=== PATIENT | male | born 1965 | race Caucasian/White ===

== ENCOUNTER 2019-01-21 21:49 | Outpatient (CLI) | payer OTHER, BC | END 2019-01-21 23:59 | disposition short-term general hospital (02) | LOC: EMS 21:49 | PROVIDERS: ATTEND Surgery | DX: R07.89 Other chest pain (principal); R10.9 Unspecified abdominal pain; M25.552 Pain in left hip; M54.5 Low back pain; S01.91XA Laceration without foreign body of unspecified part of head, initial encounter; V49.49XA Driver injured in collision with other motor vehicles in traffic accident, initial encounter; Y92.413 State road as the place of occurrence of the external cause | CPT/HCPCS: A0425; A0427 ==

== ENCOUNTER 2020-08-28 11:39 | Outpatient (CLI) | payer OTHER | END 2020-08-28 23:59 | disposition home or self-care (01) | LOC: LAB.N 11:39 | PROVIDERS: ATTEND Family Medicine | DX: R05 Cough (principal); Z20.822 Contact with and (suspected) exposure to COVID-19 ==

== ENCOUNTER 2023-05-27 08:05 | Outpatient (CLI) | payer OTHER ==
--- NOTE | 2023-05-27 09:01 | Sleep Patient Instructions ---
Sleep Center Visit Summary - Patient Visit Information Reason for Visit: Initial consultation - Patient Instructions Additional Instructions: You will continue with CPAP therapy with pressure set at 12-18 cmH2O. A supply prescription will be updated with your DME. I have added an order to update your PAP machine. Please call the office to schedule a compliance follow up once you get your new device. I have also given you a prescription for a travel CPAP as requested. We encourage you to continue to try to lose weight. Please follow up with the sleep care office one month after obtaining new device. - Clinic Information Contact: [facility] [address] [place] [address] [email or web address] T: [phone]
--- NOTE | 2023-05-27 09:10 | SLEEP CARE CONSULTATION ---
Information from patient questionnaire entered by Silvino Norris. I have reviewed and concur with the information entered by Silvino Norris. This document represents the service I personally performed and the decisions made by me, Audra Ambrosio ARNP. History of Present Illness Service Date and Time: 05/27/2023 0805 Reason for Visit: New patient, Previously diagnosed sleep apnea, sleep apnea on CPAP therapy, Other (Establish as a patient) Date of Onset: 30 years Usual bedtime: 10-12 PM Time it takes to fall asleep: ? Snores at night: Yes Observed to quit breathing while asleep: Yes Sleeps alone due to snoring: Yes Number of times waking at night: 1-2 Reasons for waking at night: reports: Choking, Snoring, Gasping for air, Pain, Other (Noise) Toss, Turn, or Twitch while sleeping: Yes Recalls having dreams: Yes Usually gets out of bed at: 7-8 Feels refreshed in the morning: Yes Morning headache: Yes (Sometimes) Sleepy or fatigued during the day: Yes Ever fallen asleep while driving: No Takes day naps: Yes Dreams during day naps: No Prior sleep studies: Yes Year and Where: [facility] Type of Sleep Study: Polysomnography Additional HPI information: RENU FITZGERALD was previously diagnosed to have very severe, AHI 68.3, obstructive sleep apnea-hypopnea syndrome as seen in HST dated 03/25/2016 as done through [facility] and comes in today to establish care for CPAP therapy. - Parasomnia Symptoms Ever been unable to move upon waking from sleep: No Walks in sleep: No Talks in sleep: No Ever acted out dreams in sleep: No Ever felt weak in the knees when startled or emotional: No Problems with memory or concentration: Yes CPAP Compliance Data - Data Reviewed with Patient Average duration of nightly device use: 10 hours 25 mins Compliance rate %: 99 (180/180 days used) Current pressure setting (cmH2O): 12-18 Average residual AHI: 4.7 Central apnea: 0.9 Obstructive apnea: 0.4 Hypopnea: 3.1 Average large leak: 16.7 L/min Compliance data discussion: He has a ResMed Airsense 10 that was last updated in 2017. His machine is giving him a message that it has exceeded its motor life. He has used [employer] in past for supplies but needs a prescription update. He uses a nasal cushion that goes over the nose. Subjective Patient concerns: reports: mask discomfort (needs to be changed; needs supplies), mask leak noise. denies: aerophagia, air blowing in eyes, condensation in mask/hose, nasal congestion, dry mouth, nose, throat, epistaxis Observed to snore while using device: No Current pressure setting perceived as: comfortable On therapy, patient: reports: sleeping better, awakening more refreshed, being more awake and alert during the day, more rested overall. denies: drowsiness while driving Initial [place] Sleepiness Scale score: 13 (in 2023) Past Medical History Past Medical History: reports: Hypertension, Claustrophobia, Anxiety, Depression, Mood disorder (PTSD), Other (high cholesterol) Social History The patient is a professor. Patient is and lives in [place]. Have you smoked in the past 12 months: No Alcohol use: No Caffeine use: Yes Caffeine amount and frequency: 1-2 a week Family History Family history of sleep disordered breathing: No (unknown) Allergies and Home Medications Known drug allergies: No Drug allergies reviewed: Yes Home medication list reviewed: Yes (as listed) Allergy and home medication list: Allergies No Known Drug Allergies Allergy (Verified 05/27/23 08:42) Home Medications Simvastatin 10 mg ORAL DAILY 05/27/23 [History] amLODIPine 5 mg ORAL DAILY 05/27/23 [History] Review of Systems Weight gain over past 5 years: 20 Cardiovascular: reports: high blood pressure Respiratory: denies: shortness of breath Gastrointestinal: denies: heartburn Neurological: reports: headaches, head trauma Psychiatric: reports: anxiety, depression, mood disorder, claustrophobia Ear/Nose/Throat: reports: other (adenoidectomy). denies: tonsillectomy, wisdom teeth removed Endocrine: reports: sluggishness (/tired) Musculoskeletal: reports: joint pain (/stiffness), back pain, mobility problems Physical Exam Vital signs obtained and entered by: Audra Morrissey NP Blood Pressure: 142/92 Cuff size: long (right arm) Heart Rate: 60 O2 Saturation: 98 Height: 6 ft 1 in Weight: 306 lb 9.6 oz Body Mass Index: 40.4 BMI Classification: Morbidly Obese Heart: regular rate and rhythm Lungs: clear bilaterally Impression and Plan 1. Obstructive Sleep Apnea-Hypopnea Syndrome, very severe, with good treatment compliance and good apnea control. On CPAP therapy, the patient has better sleep quality and is more rested overall. His ResMed Airsense 10 was last updated in 2017. The patients CPAP is over 5 years old and of reasonable use. In addition, it is giving him an error message about the motor exceeding his life. Thus, the CPAP will be updated. A DWO prescription will be made. Compliance guidelines for new device and follow up discussed. He would also like to obtain a travel CPAP. I explained that insurance does not usually pay for the travel models. He states he is okay with paying for this himself. I will give him a prescription to obtain a travel CPAP. He will call for compliance follow up once he has new CPAP. Patient's apnea severity and rationale for treatment to reduce apnea, improve sleep quality and reduce cardiovascular and cerebrovascular events was reviewed. I also reviewed the benefit of consistent device use of CPAP for hypertension, depression/anxiety, mood disorder (PTSD). 2. Obesity, unspecified. Currently patients BMI is 40.4. Obesity increases the risk of apnea, CPAP pressure requirements and overall health risks especially cardiovascular and diabetes. Thus patient is advised to lose weight. * Continue auto CPAP pressure at 12-18 cmH2O * Update machine * Update supplies * Travel CPAP * Notify me if snoring with mask or feeling that the pressure is too much or too little * Attempt to lose weight * Call this office if any problems using CPAP * Return for follow up one month after obtaining new device, or sooner if concerns arise Counseling Topics: Spare mask, Weight loss health impact Prescriptions: Auto CPAP, Device supplies Visit Type: In Office Time Spent with Patient (minutes): 38 Provider Statement: I spent 100% of the Face to Face Visit with the patient with greater than 50% spent counseling the patient and coordination of care.
[2023-05-27 09:26] VITALS: BP 142/92; O2SAT 98
== END 2023-05-27 08:06 | disposition home or self-care (01) ==
LOC: SC 08:05
PROVIDERS: ATTEND Nurse Practitioner Family
DX: G47.33 Obstructive sleep apnea (adult) (pediatric) (principal); E66.01 Morbid (severe) obesity due to excess calories; Z68.41 Body mass index [BMI] 40.0-44.9, adult
CPT/HCPCS: 99203; 99212

== ENCOUNTER 2023-08-18 09:07 | Outpatient (CLI) | payer OTHER ==
--- NOTE | 2023-08-18 09:27 | Sleep Patient Instructions ---
Sleep Center Visit Summary - Patient Visit Information Reason for Visit: First compliance with CPAP follow-up - Patient Instructions Additional Instructions: You were here for follow up of CPAP therapy. You will be continued on CPAP therapy with pressure at 13-18 cmH2O. Please let us know if the pressure change is uncomfortable and we can make further adjustments of the pressure. You should follow up with sleep care in 12 months. You may contact us sooner for any questions or concerns. - Clinic Information Contact: [facility] [address] [place] [id number] [email or web address] T: [phone]
--- NOTE | 2023-08-18 09:30 | SLEEP CARE CONSULTATION ---
Information from patient questionnaire entered by Martita Prasad. I have reviewed and concur with the information entered by aMrtita Prasad. This document represents the service I personally performed and the decisions made by me, Audra Ambrosio ARNP. History of Present Illness Service Date and Time: 08/18/2023 09 Previous diagnosis: Very Severe, Obstructive Sleep Apnea-Hypopnea Syndrome AHI: 68.3 (on 03/25/2016) Reason for follow up: first compliance after device update Equipment type: CPAP (RESMED Airsense 11, S/U 06/08/23) Equipment obtained from: [employer] ([employer]) Mask style: Nasal Mask brand: Resmed (AirFit N20, medium) Backup mask available: No Last cushion change: 1 month Prior sleep studies: Yes Year and Where: [place] [facility] Type of Sleep Study: Polysomnography HPI additional information: RENU FITZGERALD was diagnosed to have very severe, AHI 68.3, obstructive sleep apnea-hypopnea syndrome and returned today for CPAP therapy first compliance after updating device follow-up. Sleep Study - Results Type of Sleep Study: Polysomnography Prior sleep studies: Yes Year and Where: [facility] CPAP Compliance Data - Data Reviewed with Patient Average duration of nightly device use: 9 HRS 50 MINS Compliance rate %: 73 (06/08/23-07/07/23) Current pressure setting (cmH2O): 12-18 Average residual AHI: 2.9 Central apnea: 0.8 Obstructive apnea: 0.6 Hypopnea: 1.4 Average large leak: 1.4 L/min Subjective Patient concerns: denies: aerophagia, mask discomfort, air blowing in eyes, mask leak noise, condensation in mask/hose, nasal congestion, dry mouth, nose, throat, epistaxis Observed to snore while using device: No Current pressure setting perceived as: comfortable On therapy, patient: reports: sleeping better, awakening more refreshed, being more awake and alert during the day, more rested overall. denies: drowsiness while driving Initial [place] Sleepiness Scale score: 13 (in 2023) Current [place] Sleepiness Scale score: 13 (08/18/23) Allergies and Home Medications Known drug allergies: No Drug allergies reviewed: Yes Home medication list reviewed: Yes (no changes) Allergy and home medication list: Allergies No Known Drug Allergies Allergy (Verified 08/17/23 09:04) Review of Systems Review of systems same as previous: Yes (no changes) Physical Exam Vital signs obtained and entered by: MARTITA Gonzlaez MA Blood Pressure: 121/79 (RIGHT ARM) Cuff size: long Heart Rate: 69 O2 Saturation: 97 Height: 6 ft 1 in Weight: 302 lb 3.2 oz Body Mass Index: 39.9 BMI Classification: Obese Impression and Plan 1. Obstructive Sleep Apnea-Hypopnea Syndrome, very severe, with good treatment compliance and good apnea control. On CPAP therapy, the patient has better sleep quality and is more rested overall. He does feel the pressure is comfortable but he likes the higher pressures. He is using at the 17.5 cmH2O most of the time. The patients pressure will be changed to autoCPAP 13-19 cmH20 for patient comfort. Patient advised to contact me if pressure change is uncomfortable so that it can be adjusted. Goals for apnea control discussed. Patient's apnea severity and rationale for treatment to reduce apnea, improve sleep quality and reduce cardiovascular and cerebrovascular events was reviewed. I also reviewed the benefit of consistent device use of CPAP for hypertension, depression/anxiety, mood disorder (PTSD). 2. Obesity, unspecified. Currently patients BMI is 39.9. Obesity increases the risk of apnea, CPAP pressure requirements and overall health risks especially cardiovascular and diabetes. Thus patient is advised to lose weight. * Change auto CPAP pressure to 13-19 cmH2O * Notify me if snoring with mask or feeling that the pressure is too much or too little * Attempt to lose weight * Call this office if any problems using CPAP * Return for follow up in 12 months, or sooner if concerns arise Adjust device pressure to (cmH2O): 13-19 Counseling Topics: Spare mask, Weight loss health impact Follow up with Sleep Care in: 1 year Visit Type: In Office Time Spent with Patient (minutes): 20 Provider Statement: I spent 100% of the Face to Face Visit with the patient with greater than 50% spent counseling the patient and coordination of care.
[2023-08-18 09:31] VITALS: BP 121/79; O2SAT 97
== END 2023-08-18 09:08 | disposition home or self-care (01) ==
LOC: SC 09:07
PROVIDERS: ATTEND Nurse Practitioner Family
DX: G47.33 Obstructive sleep apnea (adult) (pediatric) (principal); E66.9 Obesity, unspecified; Z68.39 Body mass index [BMI] 39.0-39.9, adult
CPT/HCPCS: 99212; 99213